=== PATIENT | female | born 1950 | race Caucasian/White ===

== ENCOUNTER 2018-11-26 10:58 | Day surgery (SDC) | payer OTHER ==
[2018-11-26] MEDS ORDERED: DIAZEPAM 5 MG TAB PO ONE (11:02)
[2018-11-26] MEDS ORDERED: BACITRACIN IRRIGATION/NS 50,000 UNITS/1,000 ML BTL IRR ONE (11:02)
[2018-11-26] MEDS ORDERED: ceFAZolin 2 GM/DEXTROSE 100 ML IV ONE (11:02)
[2018-11-26] MEDS ORDERED: NS 1,000 ML IV ONE (11:02)
[2018-11-26] MEDS ORDERED: diphenhydrAMINE 25 MG CAP PO ONE (11:02)
--- NOTE | 2018-11-26 11:05 | PDGENHP ---
History & Physical Chief Complaint: 2nd degree AV block Relevant Physical Exam: [id number] rrr cta ao3 Cardiorespiratory Assessment: for pacemaker generator change
--- NOTE | 2018-11-26 11:37 | POSTANESTH ---
Post Anesthetic Evaluation Cardiovascular Status: Normal, Stable Respiratory Status: Normal, Stable Level of Consciousness/Mental Status: Can Participate in Eval Pain Control: Adequate, Prn Tx Ordered Nausea/Vomiting Control: Adequate, Prn Tx Ordered Complications Possibly Related to Anesthesia: None Noted
--- NOTE | 2018-11-26 11:37 | PDANEPAE ---
ANE Past Medical History - Cardiovascular History Hx Coronary Artery / Peripheral Vascular Disease: Yes Cardiovascular History Comment: Hx of CABG. No issue since CABG. - Pulmonary History Hx COPD: No - Neurologic History Hx Cerebrovascular Accident: No - Endocrine History Hx Diabetes: No Hypothyroid: Yes - Renal History Hx Renal Disorders: No - Liver History Hx Hepatic Disorders: No - Neurological & Psychiatric Hx Hx Neurological and Psychiatric Disorders: No - GI History Hx Gastrointestinal Disorders: No ANE Review of Systems Review of Systems: ANE Patient History - Allergies Allergies/Adverse Reactions: No Known Allergies Allergy (Verified 11/19/18 09:53) - Home Medications Home Medications: Ascorbic Acid [Vitamin C 500 mg (*)] 500 mg PO DAILY 11/19/18 [Last Taken Unknown] Aspirin [Aspirin 325 mg (*)] 325 mg PO DAILY 11/19/18 [Last Taken Unknown] Glucosamine Sulfate [Glucosamine Sulfate 500 MG (*)] 500 mg PO DAILY 11/19/18 [ Last Taken Unknown] Levothyroxine [Synthroid 25 mcg (*)] 25 mcg PO DAILY06 11/19/18 [Last Taken Unknown] Multivitamins [Multivitamin (*)] 1 each PO DAILY 11/19/18 [Last Taken Unknown] [place]-3 Fatty Acids [Fish Oil 1000 mg (*)] 1,000 mg PO DAILY 11/19/18 [Last Taken Unknown] Vitamin B Complex [Vitamin B Complex (OTC)] 1 each PO DAILY 11/19/18 [Last Taken Unknown] ANE Physical Exam - Airway Mallampati Score: Class 1 Mouth exam: normal dental/mouth exam - Pulmonary Pulmonary: no respiratory distress, no rales or rhonchi, clear to auscultation - Cardiovascular Cardiovascular: regular rate and rhythym, no murmur, rub, or gallop - ASA Status ASA Status: III ANE Anesthesia Plan Anesthesia Plan: GA with mask Total IV Anesthesia: Yes
[2018-11-26 11:41] LABS: PLATELET COUNT 191 10^3/uL (150-400)
[2018-11-26] MEDS ORDERED: BUPIVACAINE 0.75% 10 ML SDV ONE (11:52)
[2018-11-26] MEDS ORDERED: LIDOCAINE 1% 300 MG/30 ML SDV ONE (11:52)
[2018-11-26] MEDS ORDERED: LIDOCAINE 2% 2 ML INJ ONE ×2 (12:00→15:40)
[2018-11-26] MEDS ORDERED: PROPOFOL 200 MG/20 ML VIAL ONE (12:00)
[2018-11-26 12:04] LABS: INR 0.94 (0.83-1.16); PROTIME(PATIENT) 12.2 SEC (12.0-15.0)
[2018-11-26] MEDS ORDERED: PHENYLEPHRINE HCL 100 MCG/ML SYR ONE (12:52)
--- NOTE | 2018-11-26 13:15 | EPPROC ---
Electrophysiology Procedure Note: PROCEDURE PERFORMED: 1.AV Pacemaker generator change INDICATION: Pacemaker generator at RICARDO Bradycardia, 2:1 AV block at HR >80 bpm PROCEDURE NOTE: Patient presented to the cardiac catheterization laboratory in a fasting, postabsorptive state. Anesthesiologist administered sedation. The R infraclavicular area was prepped and draped in the usual sterile fashion. Lidocaine plus bupivacaine was used for local anesthesia. Using a combination of blunt and sharp dissection and electrocautery, the dissection was carried down to the prepectoral fascia and the existing pacemaker pocket was opened. Device had migrated inferiorly since implant therefore incision was lower than original incision to avoid damage to leads. The pacemaker generator was disconnected from the leads and the lead thresholds and impedance were checked. The pacemaker pocket was copiously irrigated with antibiotic solution. The pocket was again inspected for any bleeding. The leads were attached to the pacemaker securely. The pacemaker was inserted into the pocket and secured in place with a nonabsorbable suture. The pacemaker pocket was closed in 3 layers with absorbable monocryl sutures and sanjiv. Appropriate dressing was applied. The patient left the cardiac catheterization laboratory in stable condition. Serial Numbers: 1. Device [employer]onic [address] MRI (system is MRI compatible) [id number] 2. Atrial Lead Medtronic 5076-45 SN [id number] 3. Ventricular Lead Medtronic 5076-52 SN [id number] Stimulation Thresholds & Impedance Measurements: 1. Atrial Lead P 2.3 mV 718 ohm 1.9 V 0.5 ms 2. Ventricular Lead R 5.9 mV 444 ohm 0.5 V 0.5 ms [place] Pacing Parameters 1. Pacing mode DDDR 2. Lower rate 60 ppm 3. Upper tracking rate 140 ppm 4. Upper sensor rate 140 ppm 5. AV delay 270 ms Patient Problems: Problems Problem Status Onset Heart block AV second degree Acute
[2018-11-26] MEDS ORDERED: PROPOFOL/EMULSION 500 MG/50 ML BOTTLE IV ONE (15:40)
--- NOTE | 2018-11-26 16:24 | CPEKG ---
Test Reason : OPEN Blood Pressure : / mmHG Vent. Rate : 088 BPM Atrial Rate : 088 BPM P-R Int : 167 ms QRS Dur : 081 ms QT Int : 357 ms P-R-T Axes : 078 -38 062 degrees QTc Int : 432 ms Sinus rhythm Left axis deviation Confirmed by Lela Stallings ([id number]) on 11/26/2018 4:24:12 PM Referred By: Celestino Woo Confirmed By:Lela Stallings
== END 2018-11-26 16:20 | disposition home or self-care (01) ==
LOC: FCATH 10:58
PROVIDERS: ATTEND Internal Medicine Cardiovascular Disease
PROC: 0JH607Z Insertion of Cardiac Resynchronization Pacemaker Pulse Generator into Chest Subcutaneous Tissue and Fascia, Open Approach (ICD-10-PCS; principal; 2018-11-26)
PROC: 0JPT0PZ Removal of Cardiac Rhythm Related Device from Trunk Subcutaneous Tissue and Fascia, Open Approach (ICD-10-PCS; principal; 2018-11-26)
DX: Z45.010 Encounter for checking and testing of cardiac pacemaker pulse generator [battery] (principal); I44.1 Atrioventricular block, second degree; I10 Essential (primary) hypertension; I34.0 Nonrheumatic mitral (valve) insufficiency; I34.2 Nonrheumatic mitral (valve) stenosis; Z95.2 Presence of prosthetic heart valve; Z85.71 Personal history of Hodgkin lymphoma
CPT/HCPCS: C1785; J0690; J2370; J2704